=== PATIENT | female | born 1965 | race Caucasian/White ===

== ENCOUNTER → 2018-09-17 07:35 | Outpatient (CLI) | payer OTHER, SELFPAY ==
--- NOTE | 2018-09-17 | DI.MG.S_ITS ---
BILATERAL DIGITAL SCREENING MAMMOGRAM 3D/2D WITH CAD POST LUMPECTOMY WITH AUGMENTATION: 09/17/2018 CLINICAL: Routine screening. Personal history of left breast cancer. Comparison is made to exams dated: 02/20/2017 mammogram, 11/30/2015 mammogram, and 08/14/2014 mammogram - [facility]. The tissue of both breasts is heterogeneously dense. This may lower the sensitivity of mammography. Current study was also evaluated with a Computer Aided Detection (CAD) system. Bilateral breast implants are intact. No significant masses, calcifications, or other findings are seen in either breast. There has been no significant interval change. IMPRESSION: NEGATIVE There is no mammographic evidence of malignancy. A 1 year screening mammogram is recommended. This exam was interpreted at Station ID: [id number]. NOTE: For mammograms, a report in lay terms will be sent to the patient. Approximately 15% of breast malignancies will not be visualized mammographically. In the management of a palpable breast mass, a negative mammogram must not discourage biopsy of a clinically suspicious lesion. Electronically Signed By: Martin carmen/celine:09/17/2018 08:43:36 letter sent: Normal Exam ACR BI-RADS Category 1: Negative [id number]
== END ==
PROVIDERS: Family Provider Family Medicine; PCP Family Medicine; Visit Provider Family Medicine
DX: Z12.31 Encounter for screening mammogram for malignant neoplasm of breast (principal); Z85.3 Personal history of malignant neoplasm of breast
CPT/HCPCS: 77063; 77067

== ENCOUNTER → 2019-05-06 11:13 | Outpatient (CLI) | payer OTHER, SELFPAY ==
[2019-05-06 12:10] LABS: Hematocrit 39.9 % (36-46); Hemoglobin 13.3 g/dL (12.0-16.0); Mean Corpuscular HGB Conc 33.2 % (30-36); Mean Corpuscular Hemoglobin 31.4 PG (26-34); Mean Corpuscular Volume 94.5 fL (80-100); Platelet Count 184 X10^3/uL (150-400); Red Blood Cell Count 4.22 X10^6/uL (4.0-5.2); Red Cell Distribution Width 13.5 % (11.6-14.8); White Blood Cell Count 4.9 X10^3/uL (4.5-11.0)
[2019-05-06 12:43] LABS: Neutrophils Absolute Manual 3920 /uL (3000-5900); Total Cells Counted 100
[2019-05-06 12:44] LABS: RBC Morphology Normal Morphology
[2019-05-06 12:56] LABS: Alanine Aminotransferase 10 IU/L (9-52); Albumin 4.6 g/dL (3.5-5.0); Albumin Globulin Ratio 1.8 (1.0-2.8); Alkaline Phosphatase 46 U/L (38-126); Aspartate Aminotransferase 26 IU/L (14-36); BUN Creatinine Ratio 28.6 (6-22); Bilirubin Total 0.6 mg/dL (0.2-1.3); Blood Urea Nitrogen 20 mg/dL (7-17); Calcium 9.3 mg/dL (8.4-10.2); Carbon Dioxide 25 mmol/L (22-32); Chloride 105 mmol/L (98-107); Cholesterol 161 mg/dL (140-199); Estimated Glomerular Filt Rate > 60.0 mL/min (>60); Globulin 2.5 g/dL (1.7-4.1); Glucose 79 mg/dL (70-100); HDL Cholesterol 90 mg/dL (40-60); HEMOLYSIS < 15 (0-50); LDL Cholesterol Calculated 60 mg/dL (<100); Sodium 139 mmol/L (137-145); Total Protein 7.1 g/dL (6.3-8.2); Triglycerides 55 mg/dL (35-150)
[2019-05-06 13:28] LABS: TSH w/ Reflex to FT4 1.81 uIU/mL (0.47-4.68)
== END ==
PROVIDERS: PCP Family Medicine; Visit Provider Nurse Practitioner
DX: N92.1 Excessive and frequent menstruation with irregular cycle (principal)
CPT/HCPCS: 36415; 80053; 80061; 83001; 84443; 85025

== ENCOUNTER → 2020-09-11 16:33 | Outpatient (CLI) | payer OTHER, SELFPAY ==
--- NOTE | 2020-09-11 16:36 | DI.MG.S_ITS ---
BILATERAL DIGITAL SCREENING MAMMOGRAM 3D/2D WITH CAD WITH AUGMENTATION: 09/11/2020 CLINICAL: Routine screening. Breast cancer. Comparison is made to exams dated: 09/17/2018 mammogram, 02/20/2017 mammogram, and 11/30/2015 mammogram - [facility]. The tissue of both breasts is heterogeneously dense. This may lower the sensitivity of mammography. Current study was also evaluated with a Computer Aided Detection (CAD) system. Bilateral breast implants are intact. No significant masses, calcifications, or other findings are seen in either breast. There has been no significant interval change. IMPRESSION: NEGATIVE There is no mammographic evidence of malignancy. A 1 year screening mammogram is recommended. This exam was interpreted at Station ID: [id number]. NOTE: For mammograms, a report in lay terms will be sent to the patient. Approximately 15% of breast malignancies will not be visualized mammographically. In the management of a palpable breast mass, a negative mammogram must not discourage biopsy of a clinically suspicious lesion. Electronically Signed By: Martin carmen/celine:09/11/2020 17:21:42 letter sent: Normal Exam ACR BI-RADS Category 1: Negative [id number]
== END ==
PROVIDERS: PCP Family Medicine; Referring Provider Family Medicine; Visit Provider Family Medicine
DX: Z12.31 Encounter for screening mammogram for malignant neoplasm of breast (principal); Z85.3 Personal history of malignant neoplasm of breast
CPT/HCPCS: 77063; 77067

== ENCOUNTER → 2021-04-11 16:42 | Outpatient (CLI) | payer OTHER, SELFPAY ==
[2021-04-11 17:37] LABS: Hemoglobin 13.1 g/dL (12.0-16.0); Mean Corpuscular HGB Conc 33.6 % (30-36); Mean Corpuscular Hemoglobin 31.1 PG (26-34); Mean Corpuscular Volume 92.5 fL (80-100); Platelet Count 242 X10^3/uL (150-400); Red Blood Cell Count 4.21 X10^6/uL (4.0-5.2); Red Cell Distribution Width 13.7 % (11.6-14.8); White Blood Cell Count 3.8 X10^3/uL (4.5-11.0)
[2021-04-11 18:30] LABS: Alanine Aminotransferase 21 IU/L (<35); Albumin 4.6 g/dL (3.5-5.0); Albumin Globulin Ratio 1.9 (1.0-2.8); Alkaline Phosphatase 59 U/L (38-126); Amylase 95 U/L (30-110); Aspartate Aminotransferase 29 IU/L (14-36); BUN Creatinine Ratio 29.4 (6-22); Bilirubin Total 0.7 mg/dL (0.2-1.3); Blood Urea Nitrogen 20 mg/dL (7-17); Calcium 9.6 mg/dL (8.4-10.2); Carbon Dioxide 27 mmol/L (22-32); Chloride 101 mmol/L (98-107); Cholesterol 170 mg/dL (140-199); Estimated Glomerular Filt Rate > 60.0 mL/min (>60); Globulin 2.4 g/dL (1.7-4.1); Glucose 80 mg/dL (70-100); HDL Cholesterol 102 mg/dL (40-60); HEMOLYSIS < 15 (0-50); LDL Cholesterol Calculated 61 mg/dL (<100); Lipase 123 U/L (23-300); Potassium 3.5 mmol/L (3.4-5.1); Sodium 137 mmol/L (137-145); Triglycerides 33 mg/dL (35-150)
[2021-04-11 18:55] LABS: TSH w/ Reflex to FT4 2.18 uIU/mL (0.47-4.68)
== END ==
PROVIDERS: PCP Registered Nurse Diabetes Educator; Referring Provider Registered Nurse Diabetes Educator; Visit Provider Registered Nurse Diabetes Educator
DX: Z00.00 Encounter for general adult medical examination without abnormal findings (principal); M25.473 Effusion, unspecified ankle; R74.8 Abnormal levels of other serum enzymes
CPT/HCPCS: 36415; 80053; 80061; 82150; 83690; 84443; 85027

== ENCOUNTER → 2024-03-25 15:43 | Outpatient (CLI) | payer OTHER, SELFPAY ==
--- NOTE | 2024-03-25 | DI.MG.S_ITS ---
BILATERAL DIGITAL SCREENING MAMMOGRAM 3D/2D WITH CAD WITH AUGMENTATION: 03/25/2024 CLINICAL: Routine screening. Personal history of left breast cancer. Comparison is made to exams dated: 09/11/2020 mammogram, 09/17/2018 mammogram, and 02/20/2017 mammogram - [facility]. There are scattered areas of fibroglandular density in both breasts (category b / 25%-50% glandular tissue). Current study was also evaluated with a Computer Aided Detection (CAD) system. Bilateral breast implants are stable. No significant masses, calcifications, or other findings are seen in either breast. There has been no significant interval change. IMPRESSION: NEGATIVE There is no mammographic evidence of malignancy. A 1 year screening mammogram is recommended. This exam was interpreted at Station ID: [id number]. NOTE: For mammograms, a report in lay terms will be sent to the patient. Approximately 15% of breast malignancies will not be visualized mammographically. In the management of a palpable breast mass, a negative mammogram must not discourage biopsy of a clinically suspicious lesion. Electronically Signed By: Kaye montoya/celine:03/25/2024 16:13:30 letter sent: Normal Exam ACR BI-RADS Category 1: Negative 3341F
== END ==
PROVIDERS: PCP Registered Nurse Diabetes Educator; Referring Provider Registered Nurse Diabetes Educator; Visit Provider Registered Nurse Diabetes Educator
DX: Z12.31 Encounter for screening mammogram for malignant neoplasm of breast (principal); Z85.3 Personal history of malignant neoplasm of breast; R92.323 Mammographic fibroglandular density, bilateral breasts
CPT/HCPCS: 77063; 77067

== ENCOUNTER → 2024-11-29 12:26 | Outpatient (CLI) | payer OTHER, SELFPAY ==
--- NOTE | 2024-11-29 12:28 | DI.RAD.S_ITS ---
PROCEDURE: XR CHEST 2V INDICATIONS: eval SOB TECHNIQUE: 2 views of the chest were acquired. COMPARISON: [facility], , CHEST 1 VIEW, 12/10/2017, 16:06. FINDINGS AND IMPRESSION: Moderate to large left pleural effusion and probable underlying lung opacity. Follow-up imaging is recommended following clinical treatment to ensure there is no underlying mass with radiograph or CT. Heart borders are obscured. Unremarkable osseous structures. Dictated by: Harpreet Mckeon M.D. on 11/29/2024 at 13:21 Approved by: Harpreet Mckeon M.D. on 11/29/2024 at 13:23
[2024-11-29 12:57] LABS: Add Manual Diff / Slide Review NO; Basophils Absolute Auto 100 /uL (0-100); Eosinophils Absolute Auto 100 /uL (0-450); Eosinophils Percent Auto 1.8 % (2-4); Hematocrit 41.9 % (36-46); Hemoglobin 13.9 g/dL (12.0-16.0); Lymphocytes Absolute Auto 1000 /uL (1100-4500); Lymphocytes Percent Auto 18.9 % (25-40); Mean Corpuscular HGB Conc 33.1 % (30-36); Mean Corpuscular Hemoglobin 29.5 PG (26-34); Mean Corpuscular Volume 89.1 fL (80-100); Monocytes Absolute Auto 500 /uL (0-900); Monocytes Percent Auto 8.8 % (3-14); Neutrophils Absolute Auto 3800 /uL (1500-7000); Neutrophils Percent Auto 69.5 % (50-75); Platelet Count 299 X10^3/uL (150-400); Red Cell Distribution Width 14.1 % (11.6-14.8); White Blood Cell Count 5.4 X10^3/uL (4.5-11.0)
[2024-11-29 13:16] LABS: Alanine Aminotransferase 20 IU/L (<35); Albumin 4.8 g/dL (3.5-5.0); Albumin Globulin Ratio 1.8 (1.0-2.8); Alkaline Phosphatase 74 U/L (38-126); Aspartate Aminotransferase 27 IU/L (14-36); BUN Creatinine Ratio 21.8 (6-22); Bilirubin Total 0.6 mg/dL (0.2-1.3); Blood Urea Nitrogen 17 mg/dL (7-17); C-Reactive Protein Quant < 0.5 mg/dL (<1.0); Calcium 9.7 mg/dL (8.4-10.2); Carbon Dioxide 26 mmol/L (22-32); Chloride 102 mmol/L (98-107); D Dimer < 215 ng/ml (<500); Estimated Glomerular Filt Rate > 60 mL/min (>60); Globulin 2.7 g/dL (1.7-4.1); Glucose 98 mg/dL (70-100); HEMOLYSIS < 15 (0-50); Lipase 93 U/L (23-300); Potassium 4.2 mmol/L (3.4-5.1); Sodium 138 mmol/L (137-145); Total Protein 7.5 g/dL (6.3-8.2)
[2024-11-29 13:21] LABS: NT-proBNP (BNP-Adult 18+) 58 pg/mL (<125)
[2024-11-29 13:28] LABS: Appearance Urine UA CLEAR; Bilirubin Urine UA NEGATIVE (NEGATIVE); Color Urine UA YELLOW; Glucose Urine UA NEGATIVE (Negative); Ketones Urine UA NEGATIVE (NEGATIVE); Leukocyte Esterase Urine UA 1+ (NEGATIVE); Nitrite Urine UA NEGATIVE (Negative); Occult Blood Urine UA NEGATIVE (Negative); Protein Urine UA NEGATIVE (Negative); Urobilinogen Urine UA 0.2 E.U./dL (0.2); pH Urine UA 5.5 (4.5-8.0)
[2024-11-29 13:32] LABS: Urine Volume 10mL (spun)
[2024-11-29 13:33] LABS: Bacteria Urine None Seen; Culture Indicated Urine Specimen Cultured; RBC Urine None Seen (0-5/HPF); Squamous Epithelial Cell Urine 1-5 /HPF (0-5/HPF); WBC Urine 1-5/HPF (0-5/HPF)
[2024-11-29 13:48] LABS: Erythrocyte Sedimentation Rate 9 MM/HR (0-20)
== END ==
PROVIDERS: PCP Registered Nurse Diabetes Educator; Referring Provider Registered Nurse Diabetes Educator; Visit Provider Registered Nurse Diabetes Educator
DX: J90 Pleural effusion, not elsewhere classified (principal); R06.09 Other forms of dyspnea; R07.89 Other chest pain; R06.02 Shortness of breath
CPT/HCPCS: 71046; 80053; 81001; 83690; 83880; 85025; 85379; 85651; 86140; 87086

== ENCOUNTER → 2024-11-29 15:57 | Outpatient (CLI) | payer OTHER, SELFPAY ==
--- NOTE | 2024-11-29 16:06 | DI.CT.S_ITS ---
PROCEDURE: CT CHEST W CON INDICATIONS: further eval pleural effusion/opacity TECHNIQUE: After the administration of intravenous contrast, 5 mm thick sections acquired from the pulmonary apices to the posterior costophrenic angles. 1 mm axial lung, 5 mm thick coronal and sagittal reformats and 7 mm axial MIP were acquired. For radiation dose reduction, the following was used: automated exposure control, adjustment of mA and/or kV according to patient size. COMPARISON: [facility], CR, XR CHEST 2V, 11/29/2024, 12:49. FINDINGS: Image quality: Diagnostic Lungs and pleura: Large left pleural effusion. A nodular opacity is seen in the perihilar region measuring 3.9 x 3 cm. There is minimal pleural enhancement. Mediastinum, heart, and esophagus: Slight mediastinal shift to the right. Unremarkable esophagus. No pathologic lymph nodes by size criteria Chest wall and thyroid: Unremarkable thyroid. Left chest wall and axillary clips. Breast implants. Upper abdomen: Unremarkable, partially visualized Bones: suspicious heterogeneous lesion is seen in the upper sternum with heterogeneity also seen in the lower sternum. IMPRESSION: Large left pleural effusion with slight rightward mediastinal shift. There is minimal underlying pleural enhancement. Correlate with pleural fluid cytology. In the left perihilar region, there is a nodular opacity measuring 3 x 3.9 cm. This could represent underlying collapsed lung versus soft tissue lesion. Consider reimaging following treatment for the large effusion. Suspicious heterogeneous sclerosis of the sternum. Note is made of patient's left breast and axillary clips. Dictated by: Harpreet Mckeon M.D. on 11/29/2024 at 16:31 Approved by: Harpreet Mckeon M.D. on 11/29/2024 at 16:36
== END ==
PROVIDERS: PCP Registered Nurse Diabetes Educator; Referring Provider Registered Nurse Diabetes Educator; Visit Provider Registered Nurse Diabetes Educator
DX: J90 Pleural effusion, not elsewhere classified (principal); M89.9 Disorder of bone, unspecified; R07.89 Other chest pain; R06.09 Other forms of dyspnea; R06.02 Shortness of breath
CPT/HCPCS: 71046; 71260; 80053; 81001; 83690; 83880; 85025; 85379; 85651; 86140; 87086; Q9967

== ENCOUNTER 2024-11-30 14:04 | Outpatient (CLI) | payer OTHER, SELFPAY ==
--- NOTE | 2024-11-30 | PATH_ITS ---
Note [facility] Accession Number: [id number] TESTS RESULT FLAG UNITS REF RANGE LAB Clinician Provided Cytology Information No. of containers..02 Other (Miscellaneous) Source: [A] 01 LEFT PLEURAL EFFUSION DIAGNOSIS: [A] 01 LEFT PLEURAL EFFUSION SUSPICIOUS FOR MALIGNANCY. THIS INTERPRETATION INCLUDES EVALUATION OF A CELL BLOCK. ANCILLARY STUDIES PENDING; RESULTS WILL BE REPORTED AN ADDENDUM. Pathologist ICD10: J90 Signed out by: Rupa Norwood MD, Pathologist NPI- [id number] Performed by: Sha Atkinson, Lance Crewmember/Mlrs Sergeant ([facility]) Gross description: 50 CC, YELLOW, CLOUDY RECEIVED: FRESH IN TWO BLUE CAP CONTAINERS. VO /VDU 12/01/2024 1000 Local FLAG LEGEND: L-Low Normal,H-High Normal,LL-Alert Low,HH-Alert High <-Panic Low,>-Panic High,A-Abnormal,AA-Critical Abnormal Performed at: 01 =Z [facility] [address] [place] [address] [address], [place] [address] Martin Jane MD, Performed at: 01 [facility] [address] [place] [address] [address], [place], [place] [id number] MD Martin Jane MD Phone: [phone]
--- NOTE | 2024-11-30 | DI.RAD.S_ITS ---
PROCEDURE: XR CHEST 1V INDICATIONS: POST THORACENTESIS TECHNIQUE: One view of the chest was acquired. COMPARISON: [facility], , XR CHEST 2V, 11/29/2024, 12:49. FINDINGS: Surgical changes and devices: Left breast and left axilla clips. Breast implants. Lungs and pleura: Moderate to large left pleural effusion, decreased. No pneumothorax post thoracentesis. Left lower lobe opacity. Mediastinum: Mediastinal contours appear unchanged. Heart size is within normal limits. Bones and chest wall: No suspicious bony lesions. Overlying soft tissues appear unremarkable. IMPRESSION: 1. No left-sided pneumothorax post thoracentesis. 2. Moderate to large left pleural effusion, decreased. Dictated by: Nas Durant M.D. on 11/30/2024 at 16:13 Approved by: Nas Durant M.D. on 11/30/2024 at 16:15
--- NOTE | 2024-11-30 14:06 | DI.US.S_ITS ---
PROCEDURE: US THORACENTESIS DIAGNOSTIC INDICATIONS: PLEURAL EFFUSION LEFT TECHNIQUE: The indications, alternatives, benefits, risks, and complications of the procedure were explained to the patient. Written informed consent was obtained and placed in the chart. The chest was examined sonographically, and an appropriate site was chosen for thoracentesis. The skin was prepared and draped in the usual sterile fashion, and 1% lidocaine was infiltrated from the skin down through the pleural surface. A 19-gauge catheter-covered needle was then introduced into the pleural space, the catheter was advanced and the needle was withdrawn, and thereafter pleural fluid was aspirated. The catheter was then removed and a dressing was applied. COMPARISON: [facility], CR, XR CHEST 1V, 11/30/2024, 15:45. [facility], CT, CT CHEST W CON, 11/29/2024, 16:03. [facility], CR, XR CHEST 2V, 11/29/2024, 12:49. FINDINGS: Access site: Left hemithorax. Needle: One-Step centesis catheter with introducer needle. Fluid volume and description: 750 cc straw-colored blood tinged pleural fluid. Fluid sent for diagnostic testing: LDH and cytology. Medications: 1% lidocaine for local anaesthesia. Complications: The patient experienced mild pain with the procedure. Postprocedural chest x-ray is negative for pneumothorax. Vital signs are stable post procedure. IMPRESSION: Successful diagnostic and therapeutic left-sided ultrasound-guided thoracentesis. Dictated by: Nas Durant M.D. on 11/30/2024 at 16:26 Approved by: Nas Durant M.D. on 11/30/2024 at 16:29
[2024-11-30 15:18] VITALS: BP 167/98; PULSE 89; RESP 16; O2SAT 92
[2024-11-30 16:25] VITALS: BP 133/93; PULSE 94; RESP 14; O2SAT 98
== END 2024-11-30 16:30 | disposition home or self-care (01) ==
PROVIDERS: PCP Registered Nurse Diabetes Educator; Referring Provider Registered Nurse Diabetes Educator; Visit Provider Registered Nurse Diabetes Educator
DX: J90 Pleural effusion, not elsewhere classified (principal); R06.02 Shortness of breath; Z85.3 Personal history of malignant neoplasm of breast
CPT/HCPCS: 32555; 71045

== ENCOUNTER → 2024-12-01 10:10 | Outpatient (CLI) | payer OTHER, SELFPAY ==
--- NOTE | 2024-12-01 10:11 | DI.ECHO.S_ITS ---
[place] +---------+ [facility] : : [address] : : [place] : : [id number] : : Phone: [phone] Echocardiogram Report + + :Name: YONI LLANOS Study Date: 12/01/2024 Height: 64 in : :Hospital ReadingLocation: Weight: 160 lb : : Gender: Female BSA: 1.8 m2 : :: 1965 Age: 59 yrs BP: 131/101 mmHg: :Reason For Study: EVAL SHORTNESS OF BREATH, PLEURAL EFFUSION : :Ordering Physician: BECCA, : :TASIA Performed By: Sherice Paige : :Referring: TASIA HUDSON : + + Interpretation Summary This was a tentatively difficult study secondary to the presence of breast implants and pleural effusion. 1. The left ventricular contractility is mildly compromised. Estimate ejection fraction is approximately 45 to 50% with mild global hypokinesis. No LVH. Unable to comment on diastolic function. 2. The right ventricle contractility is normal. 3. All cardiac chambers appear to be of normal size. 4. Trace to mild pulmonic insufficiency. 5. No obvious intracardiac shunts. 6. No obvious intracardiac masses nor thrombi. 7. No hemodynamically significant pericardial effusion. 8. Normal right-sided filling pressures. 9. Large pleural effusion noted. Conclusion: Mildly compromised left ventricular systolic function with trace to mild pulmonic insufficiency. Procedure: Technically difficult study due to breast implants and pleural effusion. A two-dimensional transthoracic echocardiogram with color flow and Doppler was performed. The study quality was technically difficult. There is no prior echocardiogram noted for this patient. The patient was in sinus rhythm with heart rates between 87-92 bpm during the exam. Left Ventricle: The left ventricle is normal in size. There is normal left ventricular wall thickness. The ejection fraction is estimated to be 45-50%. Right Ventricle: The right ventricle is normal in size and function. Atria: The left atrial size is normal. Right atrial size is normal. There is no Doppler evidence for an interatrial shunt. Mitral Valve: The mitral valve leaflets appear moderately thickened, but open well. There is trace mitral regurgitation. Aortic Valve: The aortic valve is trileaflet. The aortic valve opens well. There is no aortic valve stenosis. No aortic regurgitation is present. Tricuspid Valve: The tricuspid valve leaflets are thin and pliable. There is trace tricuspid regurgitation. The right ventricular systolic pressure is estimated to be at least 33 mmHg based on an estimated right atrial pressure of 8 mm Hg. Pulmonic Valve: The pulmonic valve leaflets are thin and pliable; valve motion is normal. There is mild pulmonic regurgitation. Great Vessels: The aortic root is normal size. The dimensions of the ascending aorta are normal. The IVC is dilated (diameter is greater than 2.1 cm) yet it collapses greater than 50% with a sniff. This suggests a right atrial pressure of 8 mm Hg. Pericardium/ Pleura There is no pericardial effusion. There is a left pleural effusion present. MMode/2D Measurements & Calculations LVIDd: 4.3 cm LVOT diam: 2.1 cm LVIDs: 3.2 cm Ao root diam: 2.8 cm FS: 25.4 % asc Aorta Diam: 3.0 cm IVSd: 0.49 cm Ao Arch Diam (Prox Trans): 2.2 cm LVPWd: 0.71 cm LV steinberg. diameter/BSA (cm/m^2): 2.4 LV sys. diameter/BSA (cm/m^2): 1.8 LA A2 area: 18.1 cm2 RA long axis: 3.6 cm LA A4 area: 11.9 cm2 RA area: 10.6 cm2 LA length (vol): 3.9 cm RA vol: 26.0 ml LA vol: 46.9 ml RA : 14.6 ml/m2 LA vol index: 26.3 ml/m2 IVC diam: 2.1 cm RVD1 (basal): 3.5 cm RVD2 (mid): 2.6 cm TAPSE: 1.7 cm Doppler Measurements & Calculations Ao V2 max: 98.3 cm/sec LVOT Max Darin: 85.6 cm/sec Ao V2 mean: 72.9 cm/sec LV V1 max P.9 mmHg Ao max P.9 mmHg LV V1 VTI: 15.9 cm Ao mean P.3 mmHg JOSUÉ(I,D): 3.2 cm2 Ao V2 VTI: 18.0 cm JOSUÉ(V,D): 3.2 cm2 sev ratio: 0.88 JOSUÉ indexed to BSA (cm^2/m^2): 1.8 MV E max darin: 48.1 cm/sec TR max darin: 251.2 cm/sec MV A max darin: 51.4 cm/sec TR max P.2 mmHg MV E/A: 0.94 PA V2 max: 77.6 cm/sec Med Peak E' Darin: 10.8 cm/sec PA V2 mean: 48.8 cm/sec E/E' med: 4.4 PA mean P.2 mmHg Lat Peak E' Darin: 7.3 cm/sec PA pr(Accel): 25.1 mmHg E/E' lat: 6.6 E/e' average: 5.5 MV dec time: 0.16 sec SV(LVOT): 57.7 ml Reading Physician:MARU
== END ==
PROVIDERS: PCP Registered Nurse Diabetes Educator; Referring Provider Registered Nurse Diabetes Educator; Visit Provider Registered Nurse Diabetes Educator
DX: J90 Pleural effusion, not elsewhere classified (principal); I37.1 Nonrheumatic pulmonary valve insufficiency; R06.09 Other forms of dyspnea; R07.89 Other chest pain; R06.02 Shortness of breath
CPT/HCPCS: 93306

== ENCOUNTER → 2024-12-14 10:26 | Outpatient (CLI) | payer OTHER, SELFPAY ==
[2024-12-14 10:53] LABS: Add Manual Diff / Slide Review NO; Basophils Absolute Auto 0 /uL (0-100); Basophils Percent Auto 1.1 % (0-2); Eosinophils Absolute Auto 100 /uL (0-450); Eosinophils Percent Auto 2.1 % (2-4); Hematocrit 40.7 % (36-46); Hemoglobin 13.7 g/dL (12.0-16.0); Lymphocytes Absolute Auto 900 /uL (1100-4500); Lymphocytes Percent Auto 18.8 % (25-40); Mean Corpuscular HGB Conc 33.6 % (30-36); Mean Corpuscular Hemoglobin 29.9 PG (26-34); Monocytes Absolute Auto 400 /uL (0-900); Monocytes Percent Auto 8.3 % (3-14); Neutrophils Absolute Auto 3200 /uL (1500-7000); Neutrophils Percent Auto 69.7 % (50-75); Platelet Count 292 X10^3/uL (150-400); Red Blood Cell Count 4.58 X10^6/uL (4.0-5.2); Red Cell Distribution Width 14.1 % (11.6-14.8); White Blood Cell Count 4.6 X10^3/uL (4.5-11.0)
[2024-12-14 11:05] LABS: Alanine Aminotransferase 19 IU/L (<35); Albumin 4.4 g/dL (3.5-5.0); Alkaline Phosphatase 66 U/L (38-126); Aspartate Aminotransferase 24 IU/L (14-36); BUN Creatinine Ratio 22.1 (6-22); Bilirubin Total 0.5 mg/dL (0.2-1.3); Blood Urea Nitrogen 17 mg/dL (7-17); Calcium 9.7 mg/dL (8.4-10.2); Carbon Dioxide 27 mmol/L (22-32); Chloride 104 mmol/L (98-107); Estimated Glomerular Filt Rate > 60 mL/min (>60); Globulin 2.2 g/dL (1.7-4.1); Glucose 99 mg/dL (70-100); HEMOLYSIS < 15 (0-50); Potassium 4.9 mmol/L (3.4-5.1); Sodium 139 mmol/L (137-145); Total Protein 6.6 g/dL (6.3-8.2)
[2024-12-15 06:36] LABS: Cancer Antigen 27.29 58.8 U/mL (0.0-38.6)
[2024-12-15 07:09] LABS: CA 15-3 34.8 U/mL (0.0-25.0)
== END ==
PROVIDERS: PCP Registered Nurse Diabetes Educator; Referring Provider Internal Medicine; Visit Provider Internal Medicine
DX: C50.919 Malignant neoplasm of unspecified site of unspecified female breast (principal)
CPT/HCPCS: 36415; 80053; 85025; 86300

== ENCOUNTER → 2025-01-18 10:57 | Outpatient (CLI) | payer OTHER, SELFPAY ==
[2025-01-18 11:56] LABS: Add Manual Diff / Slide Review NO; Basophils Absolute Auto 0 /uL (0-100); Basophils Percent Auto 0.9 % (0-2); Eosinophils Absolute Auto 0 /uL (0-450); Eosinophils Percent Auto 1.5 % (2-4); Hematocrit 39.1 % (36-46); Hemoglobin 13.4 g/dL (12.0-16.0); Lymphocytes Absolute Auto 800 /uL (1100-4500); Lymphocytes Percent Auto 40.7 % (25-40); Mean Corpuscular HGB Conc 34.3 % (30-36); Mean Corpuscular Hemoglobin 30.2 PG (26-34); Mean Corpuscular Volume 88.1 fL (80-100); Monocytes Absolute Auto 200 /uL (0-900); Neutrophils Absolute Auto 900 /uL (1500-7000); Neutrophils Percent Auto 44.9 % (50-75); Platelet Count 184 X10^3/uL (150-400); Red Blood Cell Count 4.44 X10^6/uL (4.0-5.2)
[2025-01-18 12:08] LABS: Alanine Aminotransferase 16 IU/L (<35); Albumin 4.5 g/dL (3.5-5.0); Alkaline Phosphatase 64 U/L (38-126); Aspartate Aminotransferase 21 IU/L (14-36); Bilirubin Total 0.5 mg/dL (0.2-1.3); Blood Urea Nitrogen 20 mg/dL (7-17); Calcium 9.5 mg/dL (8.4-10.2); Carbon Dioxide 25 mmol/L (22-32); Chloride 105 mmol/L (98-107); Estimated Glomerular Filt Rate > 60 mL/min (>60); Globulin 2.2 g/dL (1.7-4.1); Glucose 93 mg/dL (70-100); HEMOLYSIS < 15 (0-50); Potassium 4.8 mmol/L (3.4-5.1); Sodium 139 mmol/L (137-145); Total Protein 6.7 g/dL (6.3-8.2)
[2025-01-19 06:36] LABS: CA 15-3 34.1 U/mL (0.0-25.0)
[2025-01-19 08:11] LABS: Cancer Antigen 27.29 51.2 U/mL (0.0-38.6)
== END ==
PROVIDERS: PCP Registered Nurse Diabetes Educator; Referring Provider Internal Medicine; Visit Provider Internal Medicine
DX: C79.81 Secondary malignant neoplasm of breast (principal)
CPT/HCPCS: 36415; 80053; 85025; 86300

== ENCOUNTER → 2025-05-15 11:16 | Outpatient (CLI) | payer OTHER, SELFPAY ==
--- NOTE | 2025-05-15 11:17 | DI.CT.S_ITS ---
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 1 mm axial lung, 5 mm thick coronal and sagittal reformats and 7 mm axial MIP were acquired. For radiation dose reduction, the following was used: automated exposure control, adjustment of mA and/or kV according to patient size. COMPARISON: [facility], CT, CT CHEST W CON, 11/29/2024, 16:03. FINDINGS: Image quality: Diagnostic. Lower Neck: No enlarged lymph nodes. Thyroid: No thyroid nodules which require sonographic follow up, per consensus guidelines. Axillae: Surgical clips in the left axilla. No enlarged axillary lymph nodes. Mildly prominent left lower axillary versus intramammary lymph node measures 0.6 cm in short axis (), not significantly changed and indeterminate. Chest Wall: Postsurgical changes are seen in the left breast with multiple surgical clips of the upper inner quadrant. Bilateral breast implants are intact. Bones: Multiple sclerotic osseous lesions in the visualized skeleton, with the largest lesions located in the sternum and T3 spinous process. Lesions appear very mildly increased in size when compared to the CT from 11/29/2024. No acute pathologic fracture. Lungs and Pleura: Moderate loculated left pleural effusion, which has decreased in size when compared to the CT from 11/29/2024. There is circumferential pleural thickening at the left lung base. Peripheral consolidative opacities at the anterior lingula and left lung base. No pneumothorax or pleural effusions. No consolidation or suspicious nodules. Heart: Heart size is normal. No pericardial effusion. Thoracic Vessels: The aorta and pulmonary arteries demonstrate normal size. Mediastinum and Monica: No enlarged lymph nodes. No internal mammary lymphadenopathy. Esophagus: No wall thickening. No hiatal hernia. Upper Abdomen: Visualized upper abdomen solid organs and bowel loops appear normal. IMPRESSION: 1. Moderate loculated left pleural effusion with pleural thickening, decreased in size when compared to the CT from 11/29/2024. 2. Consolidative opacities at the inferior left lower lobe and anterior lingula abutting the pleural effusion, favored to represent areas of rounded atelectasis rather than pulmonary masses. Recommend continued attention on follow-up. 3. Multiple sclerotic osseous lesions, which appear mildly increased in size when compared to the CT from 11/29/2024 and are consistent with osseous metastatic disease. Nuclear medicine bone scan could be considered for further evaluation and future follow-up. Approved by: Matti Perry M.D. on 05/15/2025 at 21:04
== END ==
LOC: CT 11:16
PROVIDERS: PCP Registered Nurse Diabetes Educator; Referring Provider Internal Medicine; Visit Provider Internal Medicine
DX: C50.919 Malignant neoplasm of unspecified site of unspecified female breast (principal); Z98.82 Breast implant status; J90 Pleural effusion, not elsewhere classified
CPT/HCPCS: 71260; Q9967